=== PATIENT | male | born 1990 | race Hispanic/Latino ===

== ENCOUNTER 2020-10-11 08:57 | Emergency (ER) | payer SELFPAY ==
[2020-10-11] MEDS ORDERED: TETANUS & DIPHTHERIA TOX,ADULT 0.5 ML VIAL ONE (09:28)
[2020-10-11] MEDS ORDERED: LIDOCAINE 1% W/EPI 1:100,000 MDV 20 ML VIAL ONE (09:28)
--- NOTE | 2020-10-11 09:31 | ER ---
Nurse's Notes [facility] Name: Denis Fink Age: 30 yrs Sex: Male : 1990 Arrival Date: 10/11/2020 Time: 09:05 Bed 23 Private MD: Diagnosis: Laceration without foreign body of right eyelid and periocular area-eyebrow Presentation: 10/11 09:25 Chief complaint: laceration to right eyebrow area. Coronavirus screen: At this time, iw the client does not indicate any symptoms associated with coronavirus-19. Ebola Screen: Patient negative for fever greater than or equal to 101.5 degrees Fahrenheit, and additional compatible Ebola Virus Disease symptoms Patient denies exposure to infectious person. Patient denies travel to an Ebola-affected area in the 21 days before illness onset. No symptoms or risks identified at this time. Initial Sepsis Screen: Does the patient meet any 2 criteria? No. Patient's initial sepsis screen is negative. Does the patient have a suspected source of infection? No. Patient's initial sepsis screen is negative. Risk Assessment: Do you want to hurt yourself or someone else? Patient reports no desire to harm self or others. Onset of symptoms was October 11, 2020. 09:25 Method Of Arrival: Law Enforcement: Jam CABRERA iw 09:25 Acuity: JG 4 iw Triage Assessment: 09:52 General: Appears in no apparent distress. Behavior is calm, cooperative. iw Historical: - Allergies: 09:57 No Known Allergies; iw - Immunization history:: Adult Immunizations not up to date. - Social history:: Smoking status: unknown. Screenin:52 Abuse screen: Denies threats or abuse. Denies injuries from another. Nutritional iw screening: No deficits noted. Tuberculosis screening: No symptoms or risk factors identified. Fall Risk None identified. Assessment: 09:15 General: Appears in no apparent distress. Behavior is calm, cooperative. Pain: Denies iw pain. Neuro: Level of Consciousness is awake, alert, obeys commands. Cardiovascular: Patient's skin is warm and dry. Respiratory: Respiratory effort is even, unlabored, Respiratory pattern is regular. Derm: Skin is healthy with good turgor. Musculoskeletal: Range of motion: intact in all extremities. Injury Description: Laceration sustained to inner aspect of right eyebrow is full thickness, 0.5 to 2.5 cm long, was sustained 1-2 hours ago. a small amount of bleeding noted at this time. Vital Signs: 09:30 BP 134 / 78; Pulse 84; Resp 16; Temp 98.0; Pulse Ox 100% on R/A; iw ED Course: 09:05 Patient arrived in ED. kb 09:05 Larisa Davidson FNP-C [facility]. kb 09:05 Carlo Kramer MD is Attending Physician. kb 09:06 Susana Helton, RN is Primary Nurse. iw 09:25 Arm band placed on. iw 09:25 Patient has correct armband on for positive identification. iw 09:26 Triage completed. iw 09:40 Assist provider with laceration repair on inner aspect of right eyebrow that was 2.5 iw cm. or less using sutures. Set up tray. Performed by Larisa COBURN Dressed with band aid, Patient tolerated well. Patient did not have IV access during this emergency room visit. Administered Medications: 09:30 Drug: Tetanus-Diphtheria Toxoid Adult 0.5 ml {Lead Sql Developer: [employer]. Exp: iw 10/06/2021. Lot #: [id number]. } Route: IM; Site: right deltoid; Outcome: 09:31 Discharge ordered by . kb 09:52 Discharged to Law Enforcement iw 09:52 Condition: good 09:52 Discharge instructions given to patient, Instructed on discharge instructions, follow up and referral plans. 09:53 Patient left the ED. iw Signatures: Larisa Davidson FNP-C FNP-Ckb Williams, Irene, RN RN iw Corrections: (The following items were deleted from the chart) 09:57 09:15 Arm band placed on iw iw
--- NOTE | 2020-10-11 09:31 | EDPHYS ---
Physician Documentation [facility] Name: Denis Fink Age: 30 yrs Sex: Male : 1990 Arrival Date: 10/11/2020 Time: 09:05 Bed 23 Private MD: ED Physician Carlo Kramer HPI: 10/11 09:09 This 30 yrs old Male presents to ER via Unassigned with complaints of kb laceration. 09:09 The laceration(s) is(are) located on the inner aspect of right eyebrow. Onset: The kb symptoms/episode began/occurred today. Associated signs and symptoms: The patient has no apparent associated signs or symptoms. The patient has not experienced similar symptoms in the past. The patient has not recently seen a physician. 09:28 The patient has a laceration related to: falling from a standing position, and there kb are no complicating factors. The injury was accidental. PD reports pt fell and hit head on the corner of a piece of furniture causing laceration. Denies loc. Historical: - Allergies: 09:57 No Known Allergies; iw - Immunization history:: Adult Immunizations not up to date. - Social history:: Smoking status: unknown. ROS: 09:08 Constitutional: Negative for fever, chills, and weight loss. kb 09:08 Skin: Positive for laceration(s), of the inner aspect of right eyebrow. Exam: 09:07 Constitutional: This is a well developed, well nourished patient who is awake, alert, kb and in no acute distress. ENT: Moist Mucous membranes Respiratory: Respirations even and unlabored. No increased work of breathing, no retractions or nasal flaring. 09:07 Skin: injury, laceration(s), the wound is approximately 2 cm(s), of the inner aspect of right eyebrow, that can be described as clean, no foreign body, linear, with mild bleeding. Vital Signs: 09:30 BP 134 / 78; Pulse 84; Resp 16; Temp 98.0; Pulse Ox 100% on R/A; iw Laceration: 09:29 Wound Repair of 2cm ( 0.8in ) subcutaneous laceration to inner aspect of right eyebrow. kb Linear shaped.. Distal neuro/vascular/tendon intact. Anesthesia: Wound infiltrated with 1.5 mls of 1% lidocaine w/ Epi. Wound prep: Extensive cleansing with hibiclenz by me, Wound irrigation with saline by me. Skin closed with 3 5-0 fast absorbing gut using simple sutures and sterile technique. Patient tolerated well. MDM: 09:05 Patient medically screened. kb 09:07 Data reviewed: vital signs, nurses notes. Data interpreted: Pulse oximetry: on room air kb is 100 %. Interpretation: normal. 09:30 Counseling: I had a detailed discussion with the patient and/or guardian regarding: the kb historical points, exam findings, and any diagnostic results supporting the discharge/admit diagnosis, the need for outpatient follow up, a family practitioner, to return to the emergency department if symptoms worsen or persist or if there are any questions or concerns that arise at home. 10/11 09:06 Order name: Dressing - Wound; Complete Time: 09:31 kb 10/11 09:06 Order name: Gloves, Sterile; Complete Time: 09:24 kb 10/11 09:06 Order name: Setup Suture Tray; Complete Time: 09:24 kb Administered Medications: 09:30 Drug: Tetanus-Diphtheria Toxoid Adult 0.5 ml {Bull Float Finisher: [employer]. Exp: iw 10/06/2021. Lot #: [id number]. } Route: IM; Site: right deltoid; Disposition: 10/11/20 09:31 Discharged to Home. Impression: Laceration without foreign body of right eyelid and periocular area - eyebrow. - Condition is Stable. - Discharge Instructions: Facial Laceration, [id number]. - Medication Reconciliation Form, Thank You Letter, Antibiotic Education, Prescription Opioid Use form. - Follow up: Emergency Department; When: As needed; Reason: Worsening of condition. Follow up: Private Physician; When: 2 - 3 days; Reason: Recheck today's complaints, Continuance of care, Re-evaluation by your physician. Addendum: 10/14/2020 07:10 Co-signature as Attending Physician, Carlo Kramer MD I agree with the assessment and k dr plan of care. Signatures: Larisa Davidson, QUILL WORKER-C QUILL WORKER-Ckb Carlo Kramer MD MD [facility] Susana Helton RN RN Corrections: (The following items were deleted from the chart) 10/11 09:30 09:07 Skin: injury, laceration(s), the wound is approximately 3 cm(s), of the inner kb aspect of right eyebrow, that can be described as clean, no foreign body, linear, with mild bleeding, kb 09:53 09:31 10/11/2020 09:31 Discharged to Home. Impression: Laceration without foreign body iw of right eyelid and periocular area - eyebrow. Condition is Stable. Forms are Medication Reconciliation Form, Thank You Letter, Antibiotic Education, Prescription Opioid Use. Follow up: Emergency Department; When: As needed; Reason: Worsening of condition. Follow up: Private Physician; When: 2 - 3 days; Reason: Recheck today's complaints, Continuance of care, Re-evaluation by your physician. kb
== END 2020-10-11 09:53 | disposition home or self-care (01) ==
LOC: ER 08:57
PROC: 0HQ1XZZ Repair Face Skin, External Approach (ICD-10-PCS; principal; 2020-10-11)
DX: S01.111A Laceration without foreign body of right eyelid and periocular area, initial encounter (principal); W01.190A Fall on same level from slipping, tripping and stumbling with subsequent striking against furniture, initial encounter; Z23 Encounter for immunization
CPT/HCPCS: 90471; 90714; 99283

== ENCOUNTER 2020-10-20 08:55 | Emergency (ER) | payer SELFPAY ==
[2020-10-20] MEDS ORDERED: LIDOCAINE 1% MPF 5 ML VIAL ONE (09:32)
--- NOTE | 2020-10-20 10:08 | RAD REPORT ---
EXAM DESCRIPTION: RAD - Forearm Left - 10/20/2020 9:43 am CLINICAL HISTORY: laceration COMPARISON: None. FINDINGS: No fracture is identified. There is no dislocation or periosteal reaction noted. No foreign body seen. Laceration is present anteromedial distal forearm. IMPRESSION: No foreign body. No bone abnormality.
--- NOTE | 2020-10-20 10:23 | EDPHYS ---
Physician Documentation [facility] Name: Denis Fink Age: 30 yrs Sex: Male : 1990 Arrival Date: 10/20/2020 Time: 08:58 Bed 16 Private MD: ED Physician Jon Cortez HPI: 10/20 10:06 This 30 yrs old Male presents to ER via Ambulatory with complaints of pm1 Laceration To Arm. 10:06 The patient has a laceration related to: Fall occurred at home, and there are no pm1 complicating factors. The injury was Patient was drinking crown with his friends and fell down and broke the bottle. Laceration to left forearm. The laceration(s) is(are) located on the palmar aspect of left forearm. Onset: The symptoms/episode began/occurred today, at 06:00. Associated signs and symptoms: Pertinent negatives: dizziness, numbness distal to injury, decreased range of motion to left hand and fingers and wrist. Head injury, headache, neck pain, LOC. The patient has not experienced similar symptoms in the past. The patient has not recently seen a physician. . Historical: - Allergies: 09:12 No Known Allergies; ss - Home Meds: 09:12 None [Active]; ss - PMHx: 09:12 Asthma; ss - PSHx: 09:12 None; ss - Immunization history:: Adult Immunizations up to date, Last tetanus immunization: up to date. - Social history:: Smoking status: Patient reports the use of cigarette tobacco products, smokes one-half pack cigarettes per day. ROS: 10:06 Constitutional: Negative for fever, chills, and weight loss, Cardiovascular: Negative pm1 for chest pain, palpitations, and edema, Respiratory: Negative for shortness of breath, cough, wheezing, and pleuritic chest pain, Neuro: Negative for headache, weakness, numbness, tingling, and seizure. 10:06 MS/extremity: Positive for laceration, of the palmar aspect of left forearm, Negative for decreased range of motion, deformity, paresthesias. 10:06 Skin: Positive for laceration(s), of the palmar aspect of left forearm. 10:06 Skin: Negative for foreign body sensation. Exam: 10:06 Constitutional: This is a well developed, well nourished patient who is awake, alert, pm1 and in no acute distress. Head/Face: Normocephalic, atraumatic. Neck: Trachea midline, no thyromegaly or masses palpated, and no cervical lymphadenopathy. Supple, full range of motion without nuchal rigidity, or vertebral point tenderness. No Meningismus. 10:06 Back: No spinal tenderness. No costovertebral tenderness. Full range of motion. 10:06 Cardiovascular: Exam negative for acute changes, Rate: normal, Rhythm: regular, Pulses: no pulse deficits are appreciated, Pulses are 2+ in left radial artery. 10:06 Respiratory: Exam negative for acute changes, the patient does not display signs of respiratory distress, Respirations: normal, Breath sounds: are clear throughout. 10:06 Musculoskeletal/extremity: Extremities: grossly normal except: noted in the palmar aspect of left forearm: laceration, There is no evidence of decreased ROM, deformity. 10:06 Skin: Appearance: normal except for affected area, injury, laceration(s), the wound is approximately 4 cm(s), with a depth of 0.5 cm(s), of the palmar aspect of left forearm, that can be described as clean, no foreign body, linear, with mild bleeding. Vital Signs: 09:08 BP 126 / 90; Pulse 121; Resp 14; Temp 98.2(TE); Pulse Ox 96% on R/A; Weight 99.79 kg; ss Height 5 ft. 4 in. (162.56 cm); Pain 5/10; 10:02 BP 105 / 66; Pulse 105; Resp 20; Pulse Ox 95% on R/A; vg1 09:08 Body Mass Index 37.76 (99.79 kg, 162.56 cm) ss Laceration: 10:06 Wound Repair of 4cm ( 1.6in ) subcutaneous laceration to palmar aspect of left forearm. pm1 Linear shaped.. Distal neuro/vascular/tendon intact. Anesthesia: Local anesthetic administered with 5 mls of 1% lidocaine. Wound prep: Extensive cleansing with betadine with hibiclenz by nj, Wound irrigation with saline by nj, Wound explored extensively, Copious irrigation. Skin closed with 8 4-0 Prolene using simple sutures and sterile technique. Subcutaneous tissue closed with 3 4-0 Vicryl using simple sutures and sterile technique. Dressed with Neosporin, 4x4's. Patient tolerated well. MDM: 09:08 Patient medically screened. pm1 10:21 Data reviewed: vital signs. Data interpreted: Pulse oximetry: on room air is 95 %. pm1 Interpretation: normal. Counseling: I had a detailed discussion with the patient and/or guardian regarding: the historical points, exam findings, and any diagnostic results supporting the discharge/admit diagnosis, radiology results, the need for outpatient follow up, to return to the emergency department if symptoms worsen or persist or if there are any questions or concerns that arise at home. 10/20 09:25 Order name: Forearm Left XRAY; Complete Time: 10:22 jd3 10/20 09:21 Order name: Prolene, Sutures; Complete Time: : jd3 10/20 09:21 Order name: Dressing - Wound; Complete Time: 10:14 jd3 10/20 09:21 Order name: Gloves, Sterile; Complete Time: : jd3 10/20 09:21 Order name: Setup Suture Tray; Complete Time: : jd3 Administered Medications: 09:21 Drug: Lidocaine (1 %) 1 vials Volume: 5 ml; Route: Infiltration; jd3 10:23 CANCELLED (Patient up to date): Tetanus-Diphtheria Toxoid Adult 0.5 ml IM once pm1 Disposition: 10/20/20 10:22 Discharged to Home. Impression: Laceration without foreign body of left forearm. - Condition is Stable. - Discharge Instructions: Laceration Care, Adult. - Prescriptions for Keflex 500 mg Oral Capsule - take 1 capsule by ORAL route every 12 hours for 10 days; 20 capsule. - Medication Reconciliation Form, Thank You Letter, Antibiotic Education, Prescription Opioid Use form. - Follow up: Emergency Department; When: As needed; Reason: Worsening of condition. Follow up: Private Physician; When: 10 - 14 days; Reason: Recheck today's complaints, Continuance of care, Staple/Suture removal, Re-evaluation by your physician. - Problem is new. - Symptoms have improved. Signatures: Dispatcher [employer] EDMS Stephanie Sibley RN RN ss Kenny Manzanares, MALINDA HOME ENERGY INSPECTOR pm1 Abraham Mahan RN RN jd3 Caren Figueroa RN RN vg1 Corrections: (The following items were deleted from the chart) 10:23 10:22 Tetanus-Diphtheria Toxoid Adult 0.5 ml IM once ordered. pm1 pm1 10:43 10:22 10/20/2020 10:22 Discharged to Home. Impression: Laceration without foreign body vg1 of left forearm. Condition is Stable. Forms are Medication Reconciliation Form, Thank You Letter, Antibiotic Education, Prescription Opioid Use. Follow up: Emergency Department; When: As needed; Reason: Worsening of condition. Follow up: Private Physician; When: 10 - 14 days; Reason: Recheck today's complaints, Continuance of care, Staple/Suture removal, Re-evaluation by your physician. Problem is new. Symptoms have improved. pm1 10:51 10:06 Associated signs and symptoms: Pertinent negatives: dizziness, numbness distal to pm1 injury, decreased range of motion to left hand and fingers and wrist, pm1
--- NOTE | 2020-10-20 10:23 | ER ---
Nurse's Notes [facility] Name: Denis Fink Age: 30 yrs Sex: Male : 1990 Arrival Date: 10/20/2020 Time: 08:58 Bed 16 Private MD: Diagnosis: Laceration without foreign body of left forearm Presentation: 10/20 09:08 Chief complaint: Patient states: Laceration to L forearm that occurred after falling ss last night onto a glass bottle. No active bleeding noted at this time. Pt admits to drinking ETOH in excess last night/ this morning. Coronavirus screen: Client denies travel out of the [place] in the last 14 days. Ebola Screen: Patient denies exposure to infectious person. Patient denies travel to an Ebola-affected area in the 21 days before illness onset. Complicating Factors: There are no complicating factors for this patient. Initial Sepsis Screen: Does the patient meet any 2 criteria? No. Patient's initial sepsis screen is negative. Does the patient have a suspected source of infection? No. Patient's initial sepsis screen is negative. Risk Assessment: Do you want to hurt yourself or someone else? Patient reports no desire to harm self or others. Onset of symptoms was October 20, 2020. 09:08 Method Of Arrival: Ambulatory ss 09:08 Acuity: JG 4 ss Historical: - Allergies: 09:12 No Known Allergies; ss - Home Meds: 09:12 None [Active]; ss - PMHx: 09:12 Asthma; ss - PSHx: 09:12 None; ss - Immunization history:: Adult Immunizations up to date, Last tetanus immunization: up to date. - Social history:: Smoking status: Patient reports the use of cigarette tobacco products, smokes one-half pack cigarettes per day. Screenin:17 Abuse screen: Denies threats or abuse. Nutritional screening: No deficits noted. jd3 Tuberculosis screening: No symptoms or risk factors identified. Fall Risk Ambulatory Aid- None/Bed Rest/Nurse Assist (0 pts). Gait- Normal/Bed Rest/Wheelchair (0 pts) Mental Status- Oriented to own ability (0 pts). Total To Fall Scale indicates No Risk (0-24 pts). Assessment: 09:08 General: Appears in no apparent distress. comfortable, Behavior is calm, cooperative, jd3 appropriate for age, Smells of alcohol. Pain: Complains of pain in palmar aspect of left forearm Quality of pain is described as aching, tender. Neuro: Level of Consciousness is awake, alert, obeys commands, Oriented to person, place, time, situation. Cardiovascular: Denies chest pain, Capillary refill < 3 seconds Patient's skin is warm and dry. Respiratory: Airway is patent Respiratory effort is even, unlabored, Respiratory pattern is regular, symmetrical, Denies cough, shortness of breath. GI: No signs and/or symptoms were reported involving the gastrointestinal system. : No signs and/or symptoms were reported regarding the genitourinary system. EENT: No signs and/or symptoms were reported regarding the EENT system. Derm: Skin is intact, Skin is dry, Skin is normal, Skin temperature is warm. Musculoskeletal: Circulation, motion, and sensation intact. Range of motion: intact in all extremities. Injury Description: Laceration sustained to palmar aspect of left forearm is 2.6 to 7.5 cm long, not bleeding. 09:58 Reassessment: Patient appears in no apparent distress at this time. No changes from vg1 previously documented assessment. Patient is alert, oriented x 3, equal unlabored respirations, skin warm/dry/pink. Provider at bedside. 10:42 Reassessment: Patient appears in no apparent distress at this time. Patient and/or vg1 family updated on plan of care and expected duration. Pain level reassessed. Patient is alert, oriented x 3, equal unlabored respirations, skin warm/dry/pink. Vital Signs: 09:08 BP 126 / 90; Pulse 121; Resp 14; Temp 98.2(TE); Pulse Ox 96% on R/A; Weight 99.79 kg; Height 5 ft. 4 in. (162.56 cm); Pain 5/10; 10:02 BP 105 / 66; Pulse 105; Resp 20; Pulse Ox 95% on R/A; vg1 09:08 Body Mass Index 37.76 (99.79 kg, 162.56 cm) ED Course: 08:58 Patient arrived in ED. mr 09:02 Abraham Mahan RN is Primary Nurse. jd3 09:08 Kenny Manzanares NP is PHCP. pm1 09:08 Jon Cortez MD is Attending Physician. pm1 09:11 Triage completed. ss 09:12 Arm band placed on right wrist. ss 09:18 Patient has correct armband on for positive identification. Bed in low position. Call jd3 light in reach. Side rails up X 1. Adult w/ patient. Pulse ox on. NIBP on. 09:21 Assist provider with laceration repair on palmar aspect of left forearm that was jd3 between 2.6 to 7.5 cm using sutures. Set up tray. Performed by Kenny Manzanares BRICK BURNER Dressed with 4X4s, Patient tolerated well. 09:43 Forearm Left XRAY In Process Unspecified. EDMS 09:52 Primary Nurse role handed off by Abraham Mahan RN vg1 09:52 Caren Figueroa, NEERU is Primary Nurse. vg1 10:43 Patient did not have IV access during this emergency room visit. vg1 Administered Medications: 09:21 Drug: Lidocaine (1 %) 1 vials Volume: 5 ml; Route: Infiltration; jd3 10:23 CANCELLED (Patient up to date): Tetanus-Diphtheria Toxoid Adult 0.5 ml IM once pm1 Outcome: 10:22 Discharge ordered by . pm1 10:42 Discharged to home ambulatory, with family. vg1 10:42 Condition: stable 10:42 Discharge instructions given to patient, family, Instructed on discharge instructions, follow up and referral plans. medication usage, wound care, Demonstrated understanding of instructions, follow-up care, medications, wound care, Prescriptions given X 1. 10:43 Patient left the ED. vg1 Signatures: Dispatcher [employer] [facility] MariscalBecka Shelby, RN RN ss Marinas, Patrick, NP BRICK BURNER pm1 Abraham Mahan RN RN jCaren Flores, NEERU RN vg1
[2020-10-20 10:57] VITALS: TEMP 98.2
[2020-10-20 11:04] VITALS: BP 105/66; O2SAT 95
== END 2020-10-20 10:43 | disposition home or self-care (01) ==
LOC: ER 08:55
PROC: 0JQH0ZZ Repair Left Lower Arm Subcutaneous Tissue and Fascia, Open Approach (ICD-10-PCS; principal; 2020-10-20)
DX: S51.812A Laceration without foreign body of left forearm, initial encounter (principal); W25.XXXA Contact with sharp glass, initial encounter; Y92.009 Unspecified place in unspecified non-institutional (private) residence as the place of occurrence of the external cause